=== PATIENT | male | born 1960 | race Caucasian/White ===

== ENCOUNTER → 2016-12-28 | Outpatient (CLI) | payer BC ==
--- NOTE | ~2016-12-28 | MR103 ---
[facility] A Service of [facility] RADIOLOGY TEXT RESULTS PATIENT: GRISEL THOMAS LOCATION: [facility] : 56 UNIT #: [id number] AGE: [address]: YANELY ROUSSEAU MD SEX: M ORDER DR: [id number] [facility] [address] [place], [place] [address] [id number] O MR#: [id number] Acc #: [id number] NAME: GRISEL THOMAS : 1960 SEX: M STUDY DATE/TIME: 12/28/2016 9:18 UNIT: [facility] ROOM: STUDY DESCRIPTION: MR Knee Wo Contrast Lt Attending Physician: Yanely Rousseau M.D. Referring Physician: Yanely Rousseau M.D. Ordering Physician: Physician Non-Staff Primary Care Physician: Mark Boudreaux M.D. MRI CENTER REPORT This report is preliminary unless electronic signature is present. EXAM Left knee MRI without contrast, 12/28/2016 HISTORY 55-year-old male with left knee pain after hitting knee on metal cabinet November 2016. No prior left knee surgery. COMPARISON Left knee x-rays 12/21/2016 TECHNIQUE Routine unenhanced multiplanar, multisequence high-field MR imaging of the left knee was performed. FINDINGS There is a complex tear of the posterior horn and body segment medial meniscus. There is a longitudinal horizontal oblique undersurface component of the posterior horn and body segment as well as a vertical radial component in the midbody segment. There is a questionable small meniscal flap flipped towards the posterior aspect of the intercondylar notch. Lateral meniscus is intact. Cruciate and collateral ligaments are intact. Extensor mechanism is intact. Trace joint effusion. No significant popliteal cyst. 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 Femoral trochlea articular cartilage appears intact. Lateral compartment articular cartilage is intact. There is extensive high-grade chondromalacia along the weightbearing surfaces in the medial compartment. Reactive subchondral marrow edema in the medial femoral condyle and medial tibial plateau. [facility] A Service of [facility] RADIOLOGY TEXT RESULTS PATIENT: GRISEL THOMAS [facility] UNIT #: [id number] AGE: [address]: YANELY ROUSSEAU MD SEX: M ORDER DR: Remainder of the bone marrow signal is within expected limits. Visualized musculature is unremarkable. IMPRESSION 1. Complex tear involving the posterior horn and body segment of the medial meniscus, detailed above. 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 2. No acute ligament injury. 3. Moderate-grade chondromalacia of the patella. 4. Trace joint effusion. Dictated by... Theodore Bowen M.D. THIS IS AN ELECTRONICALLY VERIFIED REPORT Theodore Bowen M.D. at 12/29/2016 8:10 AM GIORGI/edward TD: 12/28/2016 21:27 JOB #: [id number] MRI CENTER REPORT Page 1 of 1 COPY
--- NOTE | ~2016-12-28 | CR98 ---
[facility] A Service of [facility] RADIOLOGY TEXT RESULTS PATIENT: GRISEL THOMAS LOCATION: [facility] : 56 UNIT #: [id number] AGE: [address]: YANELY ROUSSEAU MD SEX: M ORDER DR: [id number] [facility] [address] [place], [place] [address] [id number] O MR#: [id number] Acc #: [id number] NAME: GRISEL THOMAS : 1960 SEX: M STUDY DATE/TIME: 12/28/2016 8:34 UNIT: [facility] ROOM: STUDY DESCRIPTION: CR Eye FB [place] Attending Physician: Yanely Rousseau M.D. Referring Physician: Yanely Rousseau M.D. Ordering Physician: Physician Non-Staff Primary Care Physician: Mark Boudreaux M.D. MEDICAL IMAGING REPORT This report is preliminary unless electronic signature is present EXAM Orbits for foreign bodies HISTORY Preoperative screening for MRI. History of metal in eyes 6 years ago. FINDINGS 2 views of the orbits demonstrates no evidence of retained metal foreign body. Orbits and visualized sinuses and calvaria are unremarkable. IMPRESSION No evidence of retained metal foreign body to preclude MRI. Dictated by... Beto Thomas M.D. THIS IS AN ELECTRONICALLY VERIFIED REPORT Beto Thomas M.D. at 12/28/2016 5:07 PM SOCORRO/chelsea TD: 12/28/2016 11:40 JOB #: [id number] MEDICAL IMAGING REPORT Page 1 of 1 COPY
== END | disposition home or self-care (01) ==
LOC: CMRI 07:49
DX: Z01.818 Encounter for other preprocedural examination (principal); M17.12 Unilateral primary osteoarthritis, left knee; M23.222 Derangement of posterior horn of medial meniscus due to old tear or injury, left knee; M22.42 Chondromalacia patellae, left knee
CPT/HCPCS: 70030; 73721